=== PATIENT | female | born 1945 | race Caucasian/White ===

== ENCOUNTER 2020-04-01 14:37 | Inpatient (IN) ==
[2020-04-01] MEDS ORDERED: Albuterol HFA INHALER 8 gm MDI INH ONE (14:41)
[2020-04-01] MEDS ORDERED: fentaNYL 100 mcg/2 ml 50 MCG/ML VIAL IV SLOW PU ONE (15:55)
[2020-04-01] MEDS ORDERED: oxyCODONE SR 10 mg TAB PO ONE (15:59)
[2020-04-01 16:35] LABS: ABS Eosinophils 0.2 10^3/ul (0-0.6); ABS Lymphocytes 0.7 10^3/ul (1.0-4.8); ABS Monocytes 1.2 10^3/ul (0-0.8); ABS Neutrophils 10.1 10^3/ul (1.5-7.7); Eosinophil % 1.5 %; Hematocrit 42 % (35-47); Hemoglobin 13.8 g/dL (12.0-16.0); Mean Corpuscular HGB Conc 33 g/dL (31-36); Mean Corpuscular Hemoglobin 30 pg (27-31); Mean Corpuscular Volume 91 fL (80-97); Mean Platelet Volume 7.7 fL (7.4-10.4); Platelet Count 320 10^3/uL (150-450); Red Blood Count 4.67 10^6 /uL (3.70-4.87); Red Cell Distribution Width 14 % (10-15); White Blood Count 12.2 10^3/uL (3.5-10.8)
[2020-04-01 16:42] LABS: INR 0.97 (0.82-1.09)
[2020-04-01] MEDS ORDERED: methylPREDNISolone 125 mg 2 ML VIAL IV ONE (16:44)
[2020-04-01] MEDS ORDERED: Azithromycin 500 mg/250 ml NS 500 MG/250 ML BAG IVPB ONE (16:44)
[2020-04-01] MEDS ORDERED: cefTRIAXone 1 gm/50 mL NS BAG 1 GM/50 ML BAG IV ONE (16:44)
[2020-04-01 16:50] LABS: ALT 20 U/L (7-52); Albumin 3.9 g/dL (3.2-5.2); Albumin/Globulin Ratio 1.6 (1-3); Alkaline Phosphatase 57 U/L (34-104); Anion Gap 7 mmol/L (2-11); BUN/Creatinine Ratio 26.6 (8-20); Blood Urea Nitrogen 17 mg/dL (6-24); CO2 Carbon Dioxide 38 mmol/L (22-32); Calcium 9.1 mg/dL (8.6-10.3); Chloride 96 mmol/L (101-111); EGFR African American 109.2 (>60); EGFR Non-African American 90.2 (>60); Globulin 2.5 g/dL (2-4); Glucose 143 mg/dL (70-100); Sodium 141 mmol/L (135-145); Total Protein 6.4 g/dL (6.4-8.9)
[2020-04-01 16:52] LABS: Troponin I 0.01 ng/mL (<0.03)
[2020-04-01] MEDS ORDERED: Albuterol HFA INHALER 8 gm MDI INH PRN (17:13)
[2020-04-01 17:34] LABS: Potassium Redraw 3.8 mmol/L (3.5-5.0)
[2020-04-01 18:24] LABS: Urine Appearance Cloudy; Urine Bilirubin Negative (Negative); Urine Blood Negative (Negative); Urine Color Yellow; Urine Glucose Negative (Negative); Urine Ketones Trace (Negative); Urine Nitrite Positive (Negative); Urine Protein 1+(30 mg/dL) (Negative); Urine Specific Gravity 1.019 (1.010-1.030); Urine Urobilinogen Negative (Negative)
[2020-04-01 18:28] LABS: Urine Bacteria 2+ (Absent); Urine Red Blood Cell Trace(0-2/hpf) (Absent); Urine Squamous Epithelial Cell Present (Absent); Urine White Blood Cell Trace(0-5/hpf) (Absent)
[2020-04-01] MEDS ORDERED: Budesonide NEB 0.5 MG/2 ML NEB.SOLN INH ONE (19:00)
[2020-04-01] MEDS: Albuterol/Ipratropium NEB.SOL (2.5/0.5 MG) 3 ML NEB.SOLN INH PRN ×2 (19:24→23:44)
[2020-04-01] MEDS ORDERED: DOXYcycline IV 100 MG in NS 0.9% 250 ML IVPB ONE (21:00)
[2020-04-01] MEDS: oxyCODONE SR 10 mg TAB PO SCH (23:17)
[2020-04-01] MEDS: Heparin 5000 UNITS/ML 1 mL VIAL SUBCUT SCH (23:17)
[2020-04-02] MEDS: Heparin 5000 UNITS/ML 1 mL VIAL SUBCUT SCH (04:57)
[2020-04-02] MEDS: oxyCODONE SR 10 mg TAB PO SCH ×3 (05:41→23:26)
[2020-04-02] MEDS ORDERED: Budesonide NEB 0.5 MG/2 ML NEB.SOLN INH SCH (07:00)
[2020-04-02] MEDS: Albuterol/Ipratropium NEB.SOL (2.5/0.5 MG) 3 ML NEB.SOLN INH PRN ×3 (07:25→22:27)
[2020-04-02] MEDS: Budesonide NEB 0.5 MG/2 ML NEB.SOLN INH SCH ×2 (07:26→22:27)
[2020-04-02] MEDS ORDERED: Influenza VAC *QUAD* 2020-21* 0.5 ML SYRINGE IM ONE (09:00)
[2020-04-02] MEDS ORDERED: DOXYcycline 100 MG in NS 0.9% 250 ml 250 ML IVPB SCH ×2 (09:00→17:00)
[2020-04-02] MEDS ORDERED: DULoxetine DR 30 mg CAP PO SCH (09:00)
[2020-04-02] MEDS ORDERED: Potassium Chlor 20 meq TAB.ER PO SCH (09:00)
[2020-04-02] MEDS: DULoxetine DR 30 mg CAP PO SCH (10:32)
[2020-04-02] MEDS: Cholecalciferol (VIT D3) 1,000 unit TAB PO SCH (10:40)
[2020-04-02] MEDS: Polyethylene Glycol 3350 17 GM PACKET PO SCH (10:48)
[2020-04-02] MEDS ORDERED: Senna TAB 8.6 mg TAB PO PRN (11:01)
[2020-04-02] MEDS ORDERED: Magnesium Hydroxide LIQ 30 ML UDC PO PRN (11:01)
[2020-04-02] MEDS ORDERED: Polyethylene Glycol 3350 17 GM PACKET PO PRN (11:01)
[2020-04-02] MEDS: Ondansetron 4 mg VIAL 2 MG/ML 2 ml VIAL IV PRN ×2 (11:28→18:45)
[2020-04-02] MEDS: Potassium Chloride LIQUID 20 MEQ/15 ML LIQUID PO SCH (15:32)
[2020-04-02] MEDS ORDERED: cefTRIAXone 1 gm/50 mL NS BAG 1 GM/50 ML BAG IVPB SCH ×2 (17:00)
[2020-04-03] MEDS ORDERED: Famotidine IV 10 MG/ML 2 ml VIAL (20 mg) IV ONE (06:00)
[2020-04-03] MEDS ORDERED: Lactated Ringers 1000 ml BAG 1,000 ML IV SCH (06:00)
[2020-04-03] MEDS ORDERED: Buffered Lidocaine 1% SYRIN 1 ml INTRADERM ONE ×2 (06:00→09:14)
[2020-04-03] MEDS: oxyCODONE SR 10 mg TAB PO SCH ×3 (06:09→21:58)
[2020-04-03] MEDS: Cholecalciferol (VIT D3) 1,000 unit TAB PO SCH (08:20)
[2020-04-03] MEDS: Polyethylene Glycol 3350 17 GM PACKET PO SCH (08:21)
[2020-04-03] MEDS: Budesonide NEB 0.5 MG/2 ML NEB.SOLN INH SCH ×2 (09:04→20:30)
[2020-04-03] MEDS: Potassium Chloride LIQUID 20 MEQ/15 ML LIQUID PO SCH (09:10)
[2020-04-03] MEDS: DULoxetine DR 30 mg CAP PO SCH (09:10)
[2020-04-03] MEDS ORDERED: Lidocaine 1% w EPI 1:200,000 SDV 30 ML VIAL ONE (09:15)
[2020-04-03] MEDS ORDERED: ceFAZolin 2 GM PREMIX 2 GM/50 ML BAG ONE (09:27)
[2020-04-03 09:28] LABS: Hematocrit 32 % (35-47); Hemoglobin 10.6 g/dL (12.0-16.0); Mean Corpuscular HGB Conc 33 g/dL (31-36); Mean Corpuscular Hemoglobin 30 pg (27-31); Mean Corpuscular Volume 90 fL (80-97); Platelet Count 273 10^3/uL (150-450); Red Blood Count 3.55 10^6 /uL (3.70-4.87); Red Cell Distribution Width 14 % (10-15)
[2020-04-03] MEDS ORDERED: Lidocaine 2% PF 5 ML VIAL ONE (09:28)
[2020-04-03] MEDS ORDERED: Dexamethasone IV 4 MG/ML VIAL 1 ml VIAL ONE (09:28)
[2020-04-03] MEDS ORDERED: Ondansetron 4 mg VIAL 2 MG/ML 2 ml VIAL ONE (09:28)
[2020-04-03] MEDS ORDERED: Propofol 10 MG/ML 20 ML BTL ONE ×2 (09:28→12:09)
[2020-04-03] MEDS ORDERED: Midazolam 5 mg/5 ml VIAL 1 mg/ml 5 ml VIAL (5 mg) ONE (09:28)
[2020-04-03] MEDS ORDERED: Ketamine HCL 50 mg/ml 10 ml VIAL (500 MG) ONE (09:28)
[2020-04-03] MEDS ORDERED: fentaNYL 100 mcg/2 ml 50 MCG/ML VIAL ONE (09:28)
[2020-04-03 09:46] LABS: INR 1.08 (0.82-1.09)
[2020-04-03 09:53] LABS: Calcium 8.4 mg/dL (8.6-10.3); EGFR African American 145.1 (>60); Potassium 4.1 mmol/L (3.5-5.0)
[2020-04-03] MEDS ORDERED: Famotidine IV 10 MG/ML 2 ml VIAL (20 mg) ONE (09:54)
[2020-04-03] MEDS ORDERED: Bupivacaine 0.5% SDV PF 30ML VIAL ONE (10:08)
[2020-04-03] MEDS ORDERED: Phenylephrine 40 mcg/mL 10mL (400mcg) SYRINGE ONE (10:36)
[2020-04-03] MEDS ORDERED: Naloxone 0.4 mg VIAL 0.4 mg/ml 1 ml VIAL IV PRN (13:38)
[2020-04-03] MEDS ORDERED: Ondansetron 4 mg VIAL 2 MG/ML 2 ml VIAL IV PRN (13:38)
[2020-04-03] MEDS ORDERED: fentaNYL 100 mcg/2 ml 50 MCG/ML VIAL IV PRN (13:38)
[2020-04-03] MEDS: Albuterol/Ipratropium NEB.SOL (2.5/0.5 MG) 3 ML NEB.SOLN INH PRN (17:05)
[2020-04-03] MEDS: ceFAZolin 1 GM X 3 DOSES POST-OP Q8H (AddVan) IVPB SCH (18:31)
[2020-04-04] MEDS: ceFAZolin 1 GM X 3 DOSES POST-OP Q8H (AddVan) IVPB SCH ×2 (02:23→10:27)
[2020-04-04] MEDS: oxyCODONE SR 10 mg TAB PO SCH ×3 (06:28→22:04)
[2020-04-04 06:34] LABS: Hematocrit 28 % (35-47); Mean Corpuscular HGB Conc 33 g/dL (31-36); Mean Corpuscular Hemoglobin 29 pg (27-31); Mean Corpuscular Volume 89 fL (80-97); Mean Platelet Volume 7.6 fL (7.4-10.4); Platelet Count 248 10^3/uL (150-450); Red Blood Count 3.08 10^6 /uL (3.70-4.87); Red Cell Distribution Width 14 % (10-15); White Blood Count 17.8 10^3/uL (3.5-10.8)
[2020-04-04 07:01] LABS: BUN/Creatinine Ratio 44.1 (8-20); Calcium 8.4 mg/dL (8.6-10.3); EGFR African American 119.9 (>60); EGFR Non-African American 99.1 (>60); Potassium 4.4 mmol/L (3.5-5.0)
[2020-04-04] MEDS: Budesonide NEB 0.5 MG/2 ML NEB.SOLN INH SCH (07:35)
[2020-04-04] MEDS: Albuterol HFA INHALER 8 gm MDI INH PRN (08:22)
[2020-04-04] MEDS: Polyethylene Glycol 3350 17 GM PACKET PO SCH (10:35)
[2020-04-04] MEDS: Cholecalciferol (VIT D3) 1,000 unit TAB PO SCH (10:38)
[2020-04-04] MEDS: DULoxetine DR 30 mg CAP PO SCH (10:38)
[2020-04-04] MEDS: Potassium Chloride LIQUID 20 MEQ/15 ML LIQUID PO SCH (10:40)
[2020-04-04] MEDS: Enoxaparin 30 MG/0.3 ML SYR SUBCUT SCH ×2 (10:41→22:05)
[2020-04-04] MEDS ORDERED: cefTRIAXone 1 gm/50 mL NS BAG 1 GM/50 ML BAG IVPB SCH (17:00)
[2020-04-04] MEDS: Cefepime 1 GM in Dextrose 1 GM/50 ML BAG IV SCH (20:24)
[2020-04-04] MEDS: metroNIDAZOLE IV 500 MG/100ML 500 MG/100 ML BAG IVPB SCH (21:47)
[2020-04-04] MEDS: NS 0.9% 1000 ml BAG 1,000 ML IV SCH (23:29)
[2020-04-05] MEDS: Budesonide NEB 0.5 MG/2 ML NEB.SOLN INH SCH ×3 (00:02→20:25)
[2020-04-05] MEDS: metroNIDAZOLE IV 500 MG/100ML 500 MG/100 ML BAG IVPB SCH ×3 (04:20→20:18)
[2020-04-05 04:32] LABS: Hematocrit 24 % (35-47); Hemoglobin 7.6 g/dL (12.0-16.0); Mean Corpuscular HGB Conc 33 g/dL (31-36); Mean Corpuscular Hemoglobin 29 pg (27-31); Mean Corpuscular Volume 90 fL (80-97); Mean Platelet Volume 7.4 fL (7.4-10.4); Platelet Count 253 10^3/uL (150-450); Red Blood Count 2.61 10^6 /uL (3.70-4.87); Red Cell Distribution Width 14 % (10-15); White Blood Count 18.1 10^3/uL (3.5-10.8)
[2020-04-05 04:49] LABS: BUN/Creatinine Ratio 36.2 (8-20); Calcium 8.4 mg/dL (8.6-10.3); EGFR African American 61.7 (>60); Potassium 4.7 mmol/L (3.5-5.0)
[2020-04-05 06:59] LABS: ABS Basophils 0.1 10^3/ul (0-0.2); ABS Lymphocytes 0.8 10^3/ul (1.0-4.8); ABS Monocytes 2.6 10^3/ul (0-0.8); ABS Neutrophils 14.6 10^3/ul (1.5-7.7); Eosinophil % 0.1 %; Lymphocyte % 4.3 %; Platelet Morphology Large
[2020-04-05] MEDS ORDERED: Furosemide 40 mg/4 ml IV VIAL ONE (08:48)
[2020-04-05] MEDS: Cefepime 1 GM in Dextrose 1 GM/50 ML BAG IV SCH ×2 (08:56→20:18)
[2020-04-05] MEDS ORDERED: Bumetanide IV 0.25 MG/ML 4 ml VIAL (1 mg) IV SCH (09:00)
[2020-04-05] MEDS: Cholecalciferol (VIT D3) 1,000 unit TAB PO SCH (11:11)
[2020-04-05] MEDS: KCL 10 MEQ/50 ML IV SCH ×2 (11:17→20:18)
[2020-04-05] MEDS: Enoxaparin 30 MG/0.3 ML SYR SUBCUT SCH ×2 (11:19→20:16)
[2020-04-05] MEDS: Morphine 2 MG/ML SYRINGE IV PRN ×2 (16:53→20:58)
[2020-04-05] MEDS: NS 0.9% 1000 ml BAG 1,000 ML IV SCH (20:13)
[2020-04-05] MEDS: Albuterol/Ipratropium NEB.SOL (2.5/0.5 MG) 3 ML NEB.SOLN INH PRN (20:20)
[2020-04-06] MEDS ORDERED: Morphine 2 MG/ML SYRINGE IV PRN (00:09)
[2020-04-06] MEDS: Albuterol/Ipratropium NEB.SOL (2.5/0.5 MG) 3 ML NEB.SOLN INH PRN ×2 (03:02→07:36)
[2020-04-06] MEDS: metroNIDAZOLE IV 500 MG/100ML 500 MG/100 ML BAG IVPB SCH (03:40)
[2020-04-06] MEDS: Budesonide NEB 0.5 MG/2 ML NEB.SOLN INH SCH ×2 (07:36→19:06)
[2020-04-06 07:48] LABS: Hematocrit 22 % (35-47); Hemoglobin 7.3 g/dL (12.0-16.0); Mean Corpuscular HGB Conc 33 g/dL (31-36); Mean Corpuscular Hemoglobin 30 pg (27-31); Mean Corpuscular Volume 91 fL (80-97); Mean Platelet Volume 7.8 fL (7.4-10.4); Platelet Count 292 10^3/uL (150-450); Red Blood Count 2.46 10^6 /uL (3.70-4.87); Red Cell Distribution Width 14 % (10-15); White Blood Count 15.9 10^3/uL (3.5-10.8)
[2020-04-06 07:55] LABS: ABS Lymphocytes 0.9 10^3/ul (1.0-4.8); ABS Monocytes 1.9 10^3/ul (0-0.8); ABS Neutrophils 13.1 10^3/ul (1.5-7.7); Eosinophil % 0.2 %; Lymphocyte % 5.9 %
[2020-04-06] MEDS: Cholecalciferol (VIT D3) 1,000 unit TAB PO SCH (08:23)
[2020-04-06] MEDS: Enoxaparin 30 MG/0.3 ML SYR SUBCUT SCH ×2 (08:27→21:43)
[2020-04-06] MEDS: KCL 10 MEQ/50 ML IV SCH (08:28)
[2020-04-06] MEDS: Cefepime 1 GM in Dextrose 1 GM/50 ML BAG IV SCH ×2 (09:24→19:11)
[2020-04-06] MEDS: Albuterol/Ipratropium NEB.SOL (2.5/0.5 MG) 3 ML NEB.SOLN INH SCH ×4 (11:02→23:24)
[2020-04-06] MEDS ORDERED: LORazepam 2 mg VIAL 1 ml IV PUSH ONE (14:24)
[2020-04-06] MEDS ORDERED: Lorazepam PYXIS KEY PRN (14:24)
[2020-04-06] MEDS ORDERED: Haloperidol 5 mg/ml SDV IV/IM 5 MG/ML AMP ONE (16:08)
[2020-04-06] MEDS: NS 0.9% 1000 ml BAG 1,000 ML IV SCH (16:28)
[2020-04-06] MEDS: Haloperidol 5 mg/ml SDV IV/IM 5 MG/ML AMP IV SLOW PU PRN (22:13)
[2020-04-06] MEDS: Albuterol HFA INHALER 8 gm MDI INH PRN (23:18)
[2020-04-07] MEDS ORDERED: NS 0.9% 1000 ml BAG 1,000 ML IV SCH (00:49)
[2020-04-07] MEDS: Albuterol/Ipratropium NEB.SOL (2.5/0.5 MG) 3 ML NEB.SOLN INH SCH ×6 (01:23→22:51)
[2020-04-07] MEDS: Haloperidol 5 mg/ml SDV IV/IM 5 MG/ML AMP IV SLOW PU PRN (01:45)
[2020-04-07 04:39] LABS: BUN/Creatinine Ratio 58.8 (8-20); Calcium 7.9 mg/dL (8.6-10.3); EGFR African American 226.5 (>60); EGFR Non-African American 187.2 (>60); Magnesium 2.2 mg/dL (1.9-2.7); Phosphorus 1.4 mg/dL (2.5-5.0); Potassium 3.5 mmol/L (3.5-5.0)
[2020-04-07] MEDS: Budesonide NEB 0.5 MG/2 ML NEB.SOLN INH SCH ×2 (07:03→19:14)
[2020-04-07] MEDS: Cholecalciferol (VIT D3) 1,000 unit TAB PO SCH (07:19)
[2020-04-07 08:43] LABS: Hematocrit 22 % (35-47); Hemoglobin 7.2 g/dL (12.0-16.0); Mean Corpuscular HGB Conc 33 g/dL (31-36); Mean Corpuscular Hemoglobin 30 pg (27-31); Mean Corpuscular Volume 90 fL (80-97); Mean Platelet Volume 6.9 fL (7.4-10.4); Platelet Count 329 10^3/uL (150-450); Red Blood Count 2.41 10^6 /uL (3.70-4.87); Red Cell Distribution Width 14 % (10-15); White Blood Count 15.1 10^3/uL (3.5-10.8)
[2020-04-07 08:59] LABS: BUN/Creatinine Ratio 52.6 (8-20); Calcium 8.2 mg/dL (8.6-10.3); EGFR African American 199.2 (>60); EGFR Non-African American 164.7 (>60); Potassium 3.6 mmol/L (3.5-5.0)
[2020-04-07 09:36] LABS: ABS Lymphocytes 0.9 10^3/ul (1.0-4.8); ABS Monocytes 2.1 10^3/ul (0-0.8); ABS Neutrophils 12.1 10^3/ul (1.5-7.7); Eosinophil % 0.2 %; Lymphocyte % 5.9 %; Nucleated Red Blood Cells % 0.1
[2020-04-07] MEDS: Cefepime 1 GM in Dextrose 1 GM/50 ML BAG IV SCH ×2 (10:51→19:26)
[2020-04-07] MEDS: Enoxaparin 30 MG/0.3 ML SYR SUBCUT SCH ×2 (10:52→19:02)
[2020-04-07] MEDS ORDERED: Furosemide 40 mg/4 ml IV VIAL IV ONE (11:00)
[2020-04-07] MEDS ORDERED: Potassium Phosphate IV 15 MMOLE in NS 0.9% 250 ml 250 ML IVPB ONE (18:00)
[2020-04-08] MEDS: Morphine 2 MG/ML SYRINGE IV PRN ×5 (03:15→13:22)
[2020-04-08] MEDS: Albuterol/Ipratropium NEB.SOL (2.5/0.5 MG) 3 ML NEB.SOLN INH SCH ×6 (04:28→23:59)
[2020-04-08 05:18] LABS: Hematocrit 24 % (35-47); Hemoglobin 7.8 g/dL (12.0-16.0); Mean Corpuscular HGB Conc 32 g/dL (31-36); Mean Corpuscular Hemoglobin 30 pg (27-31); Mean Corpuscular Volume 92 fL (80-97); Mean Platelet Volume 6.8 fL (7.4-10.4); Platelet Count 383 10^3/uL (150-450); Red Blood Count 2.64 10^6 /uL (3.70-4.87); Red Cell Distribution Width 15 % (10-15); White Blood Count 15.8 10^3/uL (3.5-10.8)
[2020-04-08 05:35] LABS: BUN/Creatinine Ratio 52.9 (8-20); EGFR African American 226.5 (>60); EGFR Non-African American 187.2 (>60); Phosphorus 2.1 mg/dL (2.5-5.0); Potassium 3.3 mmol/L (3.5-5.0)
[2020-04-08] MEDS ORDERED: KCL 10 MEQ/50 ML IVPREMIX 10 MEQ/50 ML BAG IV ONE ×2 (07:30→17:05)
[2020-04-08] MEDS: Budesonide NEB 0.5 MG/2 ML NEB.SOLN INH SCH (07:37)
[2020-04-08] MEDS: Cefepime 1 GM in Dextrose 1 GM/50 ML BAG IV SCH (07:40)
[2020-04-08] MEDS: Cholecalciferol (VIT D3) 1,000 unit TAB PO SCH (07:47)
[2020-04-08] MEDS ORDERED: Albuterol/Ipratropium NEB.SOL (2.5/0.5 MG) 3 ML NEB.SOLN INH SCH (09:00)
[2020-04-08] MEDS ORDERED: Furosemide 40 mg/4 ml IV VIAL IV SLOW PU ONE (09:28)
[2020-04-08] MEDS: methylPREDNISolone SOD 40 mg/ml 1 ml VIAL IV SCH ×2 (09:38→17:27)
[2020-04-08] MEDS: Enoxaparin 30 MG/0.3 ML SYR SUBCUT SCH ×2 (09:38→22:09)
[2020-04-08] MEDS ORDERED: ceFAZolin 1 GM ADVAN 1 GM in NS 0.9% 50 ML 50 ML IVPB SCH (12:00)
[2020-04-08] MEDS ORDERED: Saline FLUSH-CENTRAL 10 ML SYRINGE CENT\\PICC SCH ×2 (13:00→18:00)
[2020-04-08 16:54] LABS: BUN/Creatinine Ratio 47.4 (8-20); Calcium 8.3 mg/dL (8.6-10.3); EGFR African American 199.2 (>60); EGFR Non-African American 164.7 (>60); Globulin 2.3 g/dL (2-4); Magnesium 2.1 mg/dL (1.9-2.7); Phosphorus 2.3 mg/dL (2.5-5.0); Potassium 3.3 mmol/L (3.5-5.0); Total Protein 5.3 g/dL (6.4-8.9)
[2020-04-08 16:55] LABS: Albumin/Globulin Ratio 1.3 (1-3); Total Bilirubin 1.5 mg/dL (0.2-1.0)
[2020-04-08] MEDS ORDERED: TPN Peripheral STANDARD BASE A IV SCH (17:00)
[2020-04-09] MEDS: Morphine 2 MG/ML SYRINGE IV PRN ×9 (00:29→23:01)
[2020-04-09] MEDS: methylPREDNISolone SOD 40 mg/ml 1 ml VIAL IV SCH ×3 (00:35→17:00)
[2020-04-09] MEDS: Albuterol/Ipratropium NEB.SOL (2.5/0.5 MG) 3 ML NEB.SOLN INH SCH ×6 (04:04→22:56)
[2020-04-09 04:21] LABS: Hematocrit 25 % (35-47); Hemoglobin 8.2 g/dL (12.0-16.0); Mean Corpuscular HGB Conc 33 g/dL (31-36); Mean Corpuscular Hemoglobin 30 pg (27-31); Mean Corpuscular Volume 91 fL (80-97); Mean Platelet Volume 7.1 fL (7.4-10.4); Platelet Count 437 10^3/uL (150-450); Red Blood Count 2.77 10^6 /uL (3.70-4.87); Red Cell Distribution Width 15 % (10-15); White Blood Count 17.6 10^3/uL (3.5-10.8)
[2020-04-09 05:19] LABS: Albumin 3.1 g/dL (3.2-5.2); Albumin/Globulin Ratio 1.2 (1-3); Calcium 8.6 mg/dL (8.6-10.3); EGFR African American 219.1 (>60); Globulin 2.5 g/dL (2-4); Magnesium 2.3 mg/dL (1.9-2.7); Phosphorus 1.9 mg/dL (2.5-5.0); Potassium 3.4 mmol/L (3.5-5.0); Total Bilirubin 1.5 mg/dL (0.2-1.0); Total Protein 5.6 g/dL (6.4-8.9)
[2020-04-09] MEDS ORDERED: KCL 20 MEQ/100 ML IVPREMIX 20 MEQ/100 ML BAG IV SCH (06:00)
[2020-04-09] MEDS: Cholecalciferol (VIT D3) 1,000 unit TAB PO SCH (08:29)
[2020-04-09] MEDS: Enoxaparin 30 MG/0.3 ML SYR SUBCUT SCH ×2 (08:49→21:24)
[2020-04-09] MEDS: cefTRIAXone 1 gm/50 mL NS BAG 1 GM/50 ML BAG IVPB SCH (08:55)
[2020-04-09] MEDS: KCL 10 MEQ/50 ML IVPREMIX 10 MEQ/50 ML BAG IV SCH (09:03)
[2020-04-09] MEDS: TPN 24 HR with Sodium Chloride CONC. 4 MEQ/ML 100 MEQ, Potassium Chloride TPN 50 MEQ, P... CENT\\PICC SCH (17:00)
[2020-04-10] MEDS: Morphine 2 MG/ML SYRINGE IV PRN ×6 (01:05→23:35)
[2020-04-10] MEDS: methylPREDNISolone SOD 40 mg/ml 1 ml VIAL IV SCH ×2 (01:05→09:43)
[2020-04-10] MEDS: Albuterol/Ipratropium NEB.SOL (2.5/0.5 MG) 3 ML NEB.SOLN INH SCH ×6 (04:01→22:49)
[2020-04-10 04:46] LABS: Hematocrit 24 % (35-47); Hemoglobin 7.8 g/dL (12.0-16.0); Mean Corpuscular HGB Conc 32 g/dL (31-36); Mean Corpuscular Hemoglobin 30 pg (27-31); Mean Corpuscular Volume 92 fL (80-97); Mean Platelet Volume 7.2 fL (7.4-10.4); Platelet Count 402 10^3/uL (150-450); Red Blood Count 2.65 10^6 /uL (3.70-4.87); Red Cell Distribution Width 15 % (10-15); White Blood Count 18.8 10^3/uL (3.5-10.8)
[2020-04-10 05:07] LABS: Albumin 2.9 g/dL (3.2-5.2); Albumin/Globulin Ratio 1.3 (1-3); BUN/Creatinine Ratio 55.9 (8-20); Calcium 8.2 mg/dL (8.6-10.3); EGFR African American 225.9 (>60); EGFR Non-African American 186.7 (>60); Globulin 2.2 g/dL (2-4); Magnesium 2.2 mg/dL (1.9-2.7); Phosphorus 2.1 mg/dL (2.5-5.0); Potassium 3.7 mmol/L (3.5-5.0); Total Protein 5.1 g/dL (6.4-8.9)
[2020-04-10] MEDS: cefTRIAXone 1 gm/50 mL NS BAG 1 GM/50 ML BAG IVPB SCH (07:36)
[2020-04-10] MEDS: Cholecalciferol (VIT D3) 1,000 unit TAB PO SCH (09:43)
[2020-04-10] MEDS: Enoxaparin 30 MG/0.3 ML SYR SUBCUT SCH ×2 (09:44→20:09)
[2020-04-10] MEDS ORDERED: Furosemide 20 mg/2 ml IV VIAL IV ONE (11:42)
[2020-04-10] MEDS ORDERED: Dextrose 50% Syringe 50 ml 25 GM/50 ML SYRINGE IV PUSH PRN (16:46)
[2020-04-10] MEDS: TPN 24 HR with Sodium Chloride CONC. 4 MEQ/ML 100 MEQ, Potassium Chloride TPN 50 MEQ, P... CENT\\PICC SCH (16:50)
[2020-04-10] MEDS: Famotidine IV 10 MG/ML 2 ml VIAL (20 mg) IV SLOW PU SCH (20:10)
[2020-04-11] MEDS: Albuterol/Ipratropium NEB.SOL (2.5/0.5 MG) 3 ML NEB.SOLN INH SCH ×6 (03:01→22:40)
[2020-04-11] MEDS: Morphine 2 MG/ML SYRINGE IV PRN ×5 (04:12→21:18)
[2020-04-11 04:56] LABS: Magnesium 2.8 mg/dL (1.9-2.7)
[2020-04-11 05:42] LABS: Hematocrit 29 % (35-47); Hemoglobin 8.4 g/dL (12.0-16.0); Mean Corpuscular HGB Conc 29 g/dL (31-36); Mean Corpuscular Hemoglobin 31 pg (27-31); Mean Corpuscular Volume 104 fL (80-97); Mean Platelet Volume 7.9 fL (7.4-10.4); Platelet Count 379 10^3/uL (150-450); Red Blood Count 2.74 10^6 /uL (3.70-4.87); Red Cell Distribution Width 18 % (10-15); White Blood Count 18.2 10^3/uL (3.5-10.8)
[2020-04-11 06:40] LABS: BUN/Creatinine Ratio 37.8 (8-20); Blood Urea Nitrogen 17 mg/dL (6-24); CO2 Carbon Dioxide 32 mmol/L (22-32); Calcium 8.7 mg/dL (8.6-10.3); Chloride 98 mmol/L (101-111); EGFR African American 163.5 (>60); EGFR Non-African American 135.1 (>60); Sodium 132 mmol/L (135-145)
[2020-04-11 06:44] LABS: Anion Gap 2 mmol/L (2-11)
[2020-04-11] MEDS: Enoxaparin 30 MG/0.3 ML SYR SUBCUT SCH ×2 (07:49→21:18)
[2020-04-11 07:50] LABS: Potassium Redraw 3.3 mmol/L (3.5-5.0)
[2020-04-11] MEDS: methylPREDNISolone SOD 40 mg/ml 1 ml VIAL IV SCH (07:50)
[2020-04-11] MEDS: Famotidine IV 10 MG/ML 2 ml VIAL (20 mg) IV SLOW PU SCH ×2 (07:50→21:18)
[2020-04-11 08:34] LABS: Polychromasia 1+
[2020-04-11 08:35] LABS: ABS Monocytes 2.4 10^3/ul (0-0.8); ABS Neutrophils 14.7 10^3/ul (1.5-7.7); ABS Nucleated RBC 0.1 10^3/ul; Eosinophil % 0.1 %; Lymphocyte % 5.5 %; Nucleated Red Blood Cells % 0.3
[2020-04-11] MEDS: KCL 20 MEQ/100 ML IVPREMIX 20 MEQ/100 ML BAG IV SCH ×2 (11:47→14:14)
[2020-04-11 12:51] LABS: Calcium 8.4 mg/dL (8.6-10.3); EGFR African American 218.5 (>60); EGFR Non-African American 180.6 (>60); Potassium 3.8 mmol/L (3.5-5.0)
[2020-04-11] MEDS ORDERED: Furosemide 20 mg/2 ml IV VIAL IV ONE (14:50)
[2020-04-11] MEDS ORDERED: Furosemide 20 mg/2 ml IV VIAL ONE (14:53)
[2020-04-11] MEDS: TPN CENTRAL STANDARD BASE A CENTR SCH (17:03)
[2020-04-11] MEDS: Insulin GLARGINE 100 un/ml 10 ml VIAL SUBCUT SCH (21:18)
[2020-04-12] MEDS: Morphine 2 MG/ML SYRINGE IV PRN ×4 (02:47→21:16)
[2020-04-12] MEDS: Albuterol/Ipratropium NEB.SOL (2.5/0.5 MG) 3 ML NEB.SOLN INH SCH ×6 (03:04→23:07)
[2020-04-12 05:26] LABS: Hematocrit 25 % (35-47); Hemoglobin 7.9 g/dL (12.0-16.0); Mean Corpuscular HGB Conc 32 g/dL (31-36); Mean Corpuscular Hemoglobin 30 pg (27-31); Mean Corpuscular Volume 93 fL (80-97); Mean Platelet Volume 7.2 fL (7.4-10.4); Platelet Count 343 10^3/uL (150-450); Red Blood Count 2.67 10^6 /uL (3.70-4.87); Red Cell Distribution Width 16 % (10-15); White Blood Count 16.2 10^3/uL (3.5-10.8)
[2020-04-12 05:42] LABS: ALT 12 U/L (7-52); AST 10 U/L (13-39); Albumin 2.7 g/dL (3.2-5.2); Albumin/Globulin Ratio 1.4 (1-3); Alkaline Phosphatase 46 U/L (34-104); BUN/Creatinine Ratio 58.8 (8-20); Blood Urea Nitrogen 20 mg/dL (6-24); CO2 Carbon Dioxide 38 mmol/L (22-32); Calcium 8.4 mg/dL (8.6-10.3); Chloride 104 mmol/L (101-111); Cholesterol 106 mg/dL; EGFR African American 225.9 (>60); EGFR Non-African American 186.7 (>60); Glucose 174 mg/dL (70-100); Magnesium 2.3 mg/dL (1.9-2.7); Phosphorus 2.9 mg/dL (2.5-5.0); Potassium 3.7 mmol/L (3.5-5.0); Sodium 142 mmol/L (135-145); Total Protein 4.7 g/dL (6.4-8.9); Triglycerides 120 mg/dL
[2020-04-12 05:43] LABS: Prealbumin 19 mg/dL (18-38)
[2020-04-12] MEDS: methylPREDNISolone SOD 40 mg/ml 1 ml VIAL IV SCH (08:56)
[2020-04-12] MEDS: Famotidine IV 10 MG/ML 2 ml VIAL (20 mg) IV SLOW PU SCH ×2 (09:04→21:16)
[2020-04-12] MEDS: Enoxaparin 30 MG/0.3 ML SYR SUBCUT SCH (09:04)
[2020-04-12 10:41] LABS: ABS Eosinophils 0.1 10^3/ul (0-0.6); ABS Lymphocytes 1.1 10^3/ul (1.0-4.8); ABS Monocytes 2.1 10^3/ul (0-0.8); ABS Neutrophils 12.9 10^3/ul (1.5-7.7); Eosinophil % 0.5 %; Lymphocyte % 7.1 %; Nucleated Red Blood Cells % 0.3
[2020-04-12 10:43] LABS: Polychromasia 1+
[2020-04-12] MEDS: TPN CENTRAL STANDARD BASE A CENTR SCH (17:15)
[2020-04-12] MEDS: Benzocaine/Menthol LOZ PO PRN (21:16)
[2020-04-12] MEDS: Enoxaparin 100 MG/ML SYR SUBCUT SCH (21:17)
[2020-04-12] MEDS: Insulin GLARGINE 100 un/ml 10 ml VIAL SUBCUT SCH (21:17)
[2020-04-13] MEDS: Morphine 2 MG/ML SYRINGE IV PRN ×4 (00:41→09:47)
[2020-04-13] MEDS: Albuterol/Ipratropium NEB.SOL (2.5/0.5 MG) 3 ML NEB.SOLN INH SCH ×6 (03:03→23:09)
[2020-04-13] MEDS: Benzocaine/Menthol LOZ PO PRN ×2 (04:31→09:46)
[2020-04-13 05:30] LABS: Hematocrit 25 % (35-47); Hemoglobin 8.1 g/dL (12.0-16.0); Mean Corpuscular HGB Conc 32 g/dL (31-36); Mean Corpuscular Hemoglobin 30 pg (27-31); Mean Corpuscular Volume 94 fL (80-97); Mean Platelet Volume 7.2 fL (7.4-10.4); Platelet Count 317 10^3/uL (150-450); Red Blood Count 2.65 10^6 /uL (3.70-4.87); Red Cell Distribution Width 18 % (10-15); White Blood Count 15.9 10^3/uL (3.5-10.8)
[2020-04-13 05:47] LABS: BUN/Creatinine Ratio 65.7 (8-20); Blood Urea Nitrogen 23 mg/dL (6-24); CO2 Carbon Dioxide 37 mmol/L (22-32); Calcium 8.3 mg/dL (8.6-10.3); Chloride 106 mmol/L (101-111); EGFR African American 218.5 (>60); EGFR Non-African American 180.6 (>60); Glucose 164 mg/dL (70-100); Magnesium 2.2 mg/dL (1.9-2.7); Phosphorus 3.7 mg/dL (2.5-5.0); Potassium 3.8 mmol/L (3.5-5.0); Sodium 143 mmol/L (135-145)
[2020-04-13 08:43] LABS: ABS Eosinophils 0.1 10^3/ul (0-0.6); ABS Monocytes 1.9 10^3/ul (0-0.8); ABS Neutrophils 12.8 10^3/ul (1.5-7.7); Eosinophil % 0.5 %; Lymphocyte % 6.5 %; Nucleated Red Blood Cells % 0.1
[2020-04-13 08:45] LABS: Polychromasia 1+
[2020-04-13] MEDS: Enoxaparin 100 MG/ML SYR SUBCUT SCH ×2 (09:44→22:33)
[2020-04-13] MEDS: Famotidine IV 10 MG/ML 2 ml VIAL (20 mg) IV SLOW PU SCH ×2 (09:45→22:33)
[2020-04-13] MEDS: methylPREDNISolone SOD 40 mg/ml 1 ml VIAL IV SCH (09:45)
[2020-04-13] MEDS: Insulin GLARGINE 100 un/ml 10 ml VIAL SUBCUT SCH (22:53)
[2020-04-14] MEDS: Albuterol/Ipratropium NEB.SOL (2.5/0.5 MG) 3 ML NEB.SOLN INH SCH ×4 (03:16→15:39)
[2020-04-14 05:45] LABS: Hematocrit 26 % (35-47); Mean Corpuscular HGB Conc 31 g/dL (31-36); Mean Corpuscular Hemoglobin 30 pg (27-31); Mean Corpuscular Volume 95 fL (80-97); Mean Platelet Volume 7.2 fL (7.4-10.4); Platelet Count 288 10^3/uL (150-450); Red Blood Count 2.71 10^6 /uL (3.70-4.87); Red Cell Distribution Width 18 % (10-15); White Blood Count 13.8 10^3/uL (3.5-10.8)
[2020-04-14 06:02] LABS: BUN/Creatinine Ratio 66.7 (8-20); Blood Urea Nitrogen 24 mg/dL (6-24); CO2 Carbon Dioxide 38 mmol/L (22-32); Calcium 8.3 mg/dL (8.6-10.3); Chloride 104 mmol/L (101-111); EGFR African American 211.5 (>60); EGFR Non-African American 174.8 (>60); Glucose 92 mg/dL (70-100); Magnesium 2.2 mg/dL (1.9-2.7); Potassium 3.9 mmol/L (3.5-5.0); Sodium 142 mmol/L (135-145)
[2020-04-14 06:08] LABS: ABS Eosinophils 0.1 10^3/ul (0-0.6); ABS Lymphocytes 0.9 10^3/ul (1.0-4.8); ABS Monocytes 1.8 10^3/ul (0-0.8); ABS Neutrophils 11.1 10^3/ul (1.5-7.7); Eosinophil % 0.5 %; Lymphocyte % 6.7 %; Nucleated Red Blood Cells % 0.1
[2020-04-14 06:15] LABS: Polychromasia 1+
[2020-04-14] MEDS ORDERED: cefTRIAXone 2 GM ADDV.VIAL 2 GM in NS 0.9% 100 ml BAG 100 ML IVPB SCH (09:00)
[2020-04-14] MEDS ORDERED: Vancomycin per Pharmacy 1 EA NOTE FOLLOW UP SCH (09:00)
[2020-04-14] MEDS ORDERED: Vancomycin 1,500 MG in NS 0.9% 250 ml 250 ML IVPB ONE (09:00)
[2020-04-14] MEDS: Famotidine IV 10 MG/ML 2 ml VIAL (20 mg) IV SLOW PU SCH (09:04)
[2020-04-14] MEDS: Enoxaparin 100 MG/ML SYR SUBCUT SCH ×2 (09:05→21:34)
[2020-04-14] MEDS: Benzocaine/Menthol LOZ PO PRN ×2 (09:06→21:32)
[2020-04-14] MEDS ORDERED: Budesonide NEB 0.5 MG/2 ML NEB.SOLN INH SCH (10:00)
[2020-04-14] MEDS ORDERED: Remdesivir 5 MG/ML LIQ IV Vial 200 MG in NS 0.9% 250 ml 210 ML IV ONE (10:30)
[2020-04-14] MEDS: Tiotropium Brom/Olodaterol MDI INH SCH (11:26)
[2020-04-14] MEDS: Vancomycin 1,250 MG in NS 0.9% 250 ml 250 ML IVPB SCH (17:32)
[2020-04-14] MEDS: Albuterol HFA INHALER 8 gm MDI INH PRN (20:10)
[2020-04-14] MEDS: Mometasone 220 MCG MDI INH SCH (20:11)
[2020-04-14] MEDS ORDERED: Sulfamethox/Trimethoprim DS TAB 800/160 mg PO SCH ×2 (21:00)
[2020-04-14] MEDS: methylPREDNISolone SOD 40 mg/ml 1 ml VIAL IV SCH (21:35)
[2020-04-15] MEDS: Insulin GLARGINE 100 un/ml 10 ml VIAL SUBCUT SCH ×3 (01:44→21:36)
[2020-04-15] MEDS: Famotidine IV 10 MG/ML 2 ml VIAL (20 mg) IV SLOW PU SCH ×4 (01:45→21:24)
[2020-04-15] MEDS: Vancomycin 1,250 MG in NS 0.9% 250 ml 250 ML IVPB SCH ×2 (01:45→09:30)
[2020-04-15] MEDS: Sulfamethox/Trimethoprim DS TAB 800/160 mg PO SCH ×3 (01:45→21:39)
[2020-04-15 07:12] LABS: BUN/Creatinine Ratio 58.3 (8-20); Calcium 8.1 mg/dL (8.6-10.3); EGFR African American 211.5 (>60); EGFR Non-African American 174.8 (>60); Magnesium 2.2 mg/dL (1.9-2.7); Potassium 4.2 mmol/L (3.5-5.0)
[2020-04-15 07:49] LABS: Hematocrit 26 % (35-47); Mean Corpuscular HGB Conc 31 g/dL (31-36); Mean Corpuscular Hemoglobin 30 pg (27-31); Mean Corpuscular Volume 95 fL (80-97); Mean Platelet Volume 7.3 fL (7.4-10.4); Platelet Count 270 10^3/uL (150-450); Red Cell Distribution Width 18 % (10-15); White Blood Count 13.5 10^3/uL (3.5-10.8)
[2020-04-15] MEDS: Albuterol HFA INHALER 8 gm MDI INH PRN ×4 (08:28→19:40)
[2020-04-15] MEDS ORDERED: Vancomycin Trough Check NOTE FOLLOW UP ONE (08:30)
[2020-04-15] MEDS: Enoxaparin 100 MG/ML SYR SUBCUT SCH (08:34)
[2020-04-15] MEDS: methylPREDNISolone SOD 40 mg/ml 1 ml VIAL IV SCH ×2 (08:35→21:31)
[2020-04-15 08:52] LABS: ABS Lymphocytes 0.4 10^3/ul (1.0-4.8); ABS Monocytes 0.8 10^3/ul (0-0.8); ABS Neutrophils 12.3 10^3/ul (1.5-7.7); Lymphocyte % 2.9 %; Nucleated Red Blood Cells % 0.1
[2020-04-15] MEDS: Mometasone 220 MCG MDI INH SCH ×2 (09:22→19:41)
[2020-04-15] MEDS: Tiotropium Brom/Olodaterol MDI INH SCH (09:22)
[2020-04-15] MEDS: Vancomycin 1000 MG in NS 0.9% 250 ML IVPB SCH ×2 (12:38→21:28)
[2020-04-15] MEDS: Remdesivir 5 MG/ML LIQ IV Vial 100 MG in NS 0.9% 250 ml 230 ML IV SCH (15:09)
[2020-04-15] MEDS: Benzocaine/Menthol LOZ PO PRN (21:39)
[2020-04-16] MEDS: Vancomycin 1000 MG in NS 0.9% 250 ML IVPB SCH (04:26)
[2020-04-16] MEDS: Albuterol HFA INHALER 8 gm MDI INH PRN ×3 (06:41→17:44)
[2020-04-16] MEDS: Tiotropium Brom/Olodaterol MDI INH SCH ×2 (06:43→07:56)
[2020-04-16] MEDS: Mometasone 220 MCG MDI INH SCH ×3 (06:43→20:32)
[2020-04-16 08:09] LABS: Albumin/Globulin Ratio 1.5 (1-3); BUN/Creatinine Ratio 51.3 (8-20); EGFR African American 192.8 (>60); EGFR Non-African American 159.4 (>60); Total Bilirubin 0.9 mg/dL (0.2-1.0)
[2020-04-16] MEDS: Enoxaparin 40 MG/0.4 ML SYR SUBCUT SCH (08:58)
[2020-04-16] MEDS: methylPREDNISolone SOD 40 mg/ml 1 ml VIAL IV SCH ×2 (08:59→21:18)
[2020-04-16] MEDS: Famotidine IV 10 MG/ML 2 ml VIAL (20 mg) IV SLOW PU SCH ×2 (08:59→21:14)
[2020-04-16] MEDS: Sulfamethox/Trimethoprim DS TAB 800/160 mg PO SCH ×2 (08:59→21:21)
[2020-04-16] MEDS ORDERED: Vancomycin Trough Check NOTE FOLLOW UP ONE (11:30)
[2020-04-16 11:54] LABS: Magnesium 2.2 mg/dL (1.9-2.7)
[2020-04-16] MEDS: Remdesivir 5 MG/ML LIQ IV Vial 100 MG in NS 0.9% 250 ml 230 ML IV SCH (16:14)
[2020-04-16 16:24] LABS: Hematocrit 27 % (35-47); Hemoglobin 8.7 g/dL (12.0-16.0); Mean Corpuscular HGB Conc 32 g/dL (31-36); Mean Corpuscular Hemoglobin 30 pg (27-31); Mean Corpuscular Volume 95 fL (80-97); Mean Platelet Volume 8.5 fL (7.4-10.4); Platelet Count 283 10^3/uL (150-450); Red Blood Count 2.87 10^6 /uL (3.70-4.87); Red Cell Distribution Width 18 % (10-15); White Blood Count 10.5 10^3/uL (3.5-10.8)
[2020-04-16 18:21] LABS: ABS Lymphocytes 0.2 10^3/ul (1.0-4.8); ABS Monocytes 0.9 10^3/ul (0-0.8); ABS Neutrophils 9.4 10^3/ul (1.5-7.7); Lymphocyte % 1.8 %; Nucleated Red Blood Cells % 0.1
[2020-04-16] MEDS: Benzocaine/Menthol LOZ PO PRN (21:22)
[2020-04-16] MEDS: Insulin GLARGINE 100 un/ml 10 ml VIAL SUBCUT SCH (21:47)
[2020-04-17 07:57] LABS: Albumin/Globulin Ratio 1.6 (1-3); BUN/Creatinine Ratio 47.7 (8-20); EGFR African American 167.8 (>60); EGFR Non-African American 138.7 (>60); Globulin 1.9 g/dL (2-4); Potassium 4.4 mmol/L (3.5-5.0); Total Bilirubin 0.8 mg/dL (0.2-1.0); Total Protein 4.9 g/dL (6.4-8.9)
[2020-04-17] MEDS: Tiotropium Brom/Olodaterol MDI INH SCH (08:23)
[2020-04-17] MEDS: Albuterol HFA INHALER 8 gm MDI INH PRN (08:23)
[2020-04-17] MEDS: Mometasone 220 MCG MDI INH SCH ×2 (08:24→19:57)
[2020-04-17] MEDS: methylPREDNISolone SOD 40 mg/ml 1 ml VIAL IV SCH ×2 (09:41→21:17)
[2020-04-17] MEDS: Sulfamethox/Trimethoprim DS TAB 800/160 mg PO SCH (09:48)
[2020-04-17] MEDS: Famotidine IV 10 MG/ML 2 ml VIAL (20 mg) IV SLOW PU SCH ×2 (09:50→21:17)
[2020-04-17] MEDS: Enoxaparin 40 MG/0.4 ML SYR SUBCUT SCH (09:50)
[2020-04-17] MEDS: Polyethylene Glycol 3350 17 GM PACKET PO SCH (16:32)
[2020-04-17] MEDS: Remdesivir 5 MG/ML LIQ IV Vial 100 MG in NS 0.9% 250 ml 230 ML IV SCH (21:19)
[2020-04-17] MEDS: Insulin GLARGINE 100 un/ml 10 ml VIAL SUBCUT SCH (21:51)
[2020-04-17] MEDS: Benzocaine/Menthol LOZ PO PRN (21:52)
[2020-04-18 05:17] LABS: ALT 50 U/L (7-52); AST 19 U/L (13-39); Albumin/Globulin Ratio 1.7 (1-3); Alkaline Phosphatase 73 U/L (34-104); BUN/Creatinine Ratio 51.4 (8-20); Blood Urea Nitrogen 18 mg/dL (6-24); CO2 Carbon Dioxide 39 mmol/L (22-32); Calcium 7.9 mg/dL (8.6-10.3); Chloride 102 mmol/L (101-111); EGFR African American 218.5 (>60); EGFR Non-African American 180.6 (>60); Globulin 1.8 g/dL (2-4); Glucose 130 mg/dL (70-100); Potassium 4.4 mmol/L (3.5-5.0); Sodium 141 mmol/L (135-145); Total Protein 4.8 g/dL (6.4-8.9)
[2020-04-18] MEDS: Albuterol HFA INHALER 8 gm MDI INH PRN ×3 (07:36→19:14)
[2020-04-18] MEDS: Tiotropium Brom/Olodaterol MDI INH SCH (07:36)
[2020-04-18] MEDS: Mometasone 220 MCG MDI INH SCH ×2 (07:36→19:14)
[2020-04-18] MEDS: Famotidine IV 10 MG/ML 2 ml VIAL (20 mg) IV SLOW PU SCH ×2 (08:14→21:20)
[2020-04-18] MEDS: methylPREDNISolone SOD 40 mg/ml 1 ml VIAL IV SCH ×2 (08:14→21:20)
[2020-04-18] MEDS: Enoxaparin 40 MG/0.4 ML SYR SUBCUT SCH (08:15)
[2020-04-18] MEDS: Polyethylene Glycol 3350 17 GM PACKET PO SCH (11:22)
[2020-04-18] MEDS: Benzocaine/Menthol LOZ PO PRN (21:24)
[2020-04-18] MEDS: Remdesivir 5 MG/ML LIQ IV Vial 100 MG in NS 0.9% 250 ml 230 ML IV SCH (21:24)
[2020-04-18] MEDS: Insulin GLARGINE 100 un/ml 10 ml VIAL SUBCUT SCH (21:32)
[2020-04-18 22:16] LABS: BUN/Creatinine Ratio 44.2 (8-20); Blood Urea Nitrogen 19 mg/dL (6-24); Chloride 100 mmol/L (101-111); EGFR African American 172.3 (>60); EGFR Non-African American 142.4 (>60); Glucose 135 mg/dL (70-100); Magnesium 2.3 mg/dL (1.9-2.7); Potassium 3.9 mmol/L (3.5-5.0); Sodium 140 mmol/L (135-145)
[2020-04-18 22:24] LABS: CO2 Carbon Dioxide 41 mmol/L (22-32)
[2020-04-19] MEDS: Mometasone 220 MCG MDI INH SCH ×2 (07:18→19:37)
[2020-04-19] MEDS: Tiotropium Brom/Olodaterol MDI INH SCH (07:19)
[2020-04-19] MEDS: Albuterol HFA INHALER 8 gm MDI INH PRN ×3 (07:19→19:36)
[2020-04-19] MEDS: Famotidine IV 10 MG/ML 2 ml VIAL (20 mg) IV SLOW PU SCH ×2 (08:09→21:58)
[2020-04-19] MEDS: methylPREDNISolone SOD 40 mg/ml 1 ml VIAL IV SCH ×2 (08:09→21:58)
[2020-04-19] MEDS: Enoxaparin 40 MG/0.4 ML SYR SUBCUT SCH (08:09)
[2020-04-19] MEDS: Polyethylene Glycol 3350 17 GM PACKET PO SCH (08:10)
[2020-04-19 09:54] LABS: BUN/Creatinine Ratio 47.2 (8-20); Calcium 7.9 mg/dL (8.6-10.3); EGFR African American 211.5 (>60); EGFR Non-African American 174.8 (>60); Potassium 4.2 mmol/L (3.5-5.0)
[2020-04-19] MEDS: Sodium Phosphate ADULT ENEMA 133 ML BTL PR ONE ×2 (16:46→17:36)
[2020-04-19] MEDS: Insulin GLARGINE 100 un/ml 10 ml VIAL SUBCUT SCH (20:15)
[2020-04-20] MEDS: Benzocaine/Menthol LOZ PO PRN ×2 (00:41→22:20)
[2020-04-20] MEDS: Tiotropium Brom/Olodaterol MDI INH SCH (07:45)
[2020-04-20] MEDS: Mometasone 220 MCG MDI INH SCH ×2 (07:45→21:04)
[2020-04-20] MEDS: Famotidine IV 10 MG/ML 2 ml VIAL (20 mg) IV SLOW PU SCH ×2 (08:10→22:10)
[2020-04-20] MEDS: methylPREDNISolone SOD 40 mg/ml 1 ml VIAL IV SCH ×2 (08:10→22:09)
[2020-04-20] MEDS: Enoxaparin 40 MG/0.4 ML SYR SUBCUT SCH (08:11)
[2020-04-20] MEDS: Polyethylene Glycol 3350 17 GM PACKET PO SCH (08:12)
[2020-04-20] MEDS: Insulin GLARGINE 100 un/ml 10 ml VIAL SUBCUT SCH (22:25)
[2020-04-21] MEDS: Tiotropium Brom/Olodaterol MDI INH SCH (07:41)
[2020-04-21] MEDS: Mometasone 220 MCG MDI INH SCH ×2 (07:41→19:22)
[2020-04-21] MEDS: Albuterol HFA INHALER 8 gm MDI INH PRN (07:43)
[2020-04-21] MEDS: Famotidine IV 10 MG/ML 2 ml VIAL (20 mg) IV SLOW PU SCH ×2 (11:38→22:02)
[2020-04-21] MEDS: methylPREDNISolone SOD 40 mg/ml 1 ml VIAL IV SCH (11:38)
[2020-04-21] MEDS: Enoxaparin 40 MG/0.4 ML SYR SUBCUT SCH (11:38)
[2020-04-21] MEDS: Polyethylene Glycol 3350 17 GM PACKET PO SCH (11:39)
[2020-04-21] MEDS: Insulin GLARGINE 100 un/ml 10 ml VIAL SUBCUT SCH (22:03)
[2020-04-21] MEDS: Benzocaine/Menthol LOZ PO PRN (22:31)
[2020-04-22] MEDS: Mometasone 220 MCG MDI INH SCH ×2 (07:18→19:54)
[2020-04-22] MEDS: Tiotropium Brom/Olodaterol MDI INH SCH (07:19)
[2020-04-22] MEDS: Polyethylene Glycol 3350 17 GM PACKET PO SCH (09:06)
[2020-04-22] MEDS: Famotidine IV 10 MG/ML 2 ml VIAL (20 mg) IV SLOW PU SCH ×2 (09:22→19:53)
[2020-04-22] MEDS: Enoxaparin 40 MG/0.4 ML SYR SUBCUT SCH (09:22)
[2020-04-22] MEDS: Insulin GLARGINE 100 un/ml 10 ml VIAL SUBCUT SCH (19:53)
[2020-04-22] MEDS: Benzocaine/Menthol LOZ PO PRN (19:53)
[2020-04-23] MEDS: Tiotropium Brom/Olodaterol MDI INH SCH (07:58)
[2020-04-23] MEDS: Mometasone 220 MCG MDI INH SCH ×2 (07:59→20:01)
[2020-04-23] MEDS: Polyethylene Glycol 3350 17 GM PACKET PO SCH (09:14)
[2020-04-23] MEDS: Famotidine IV 10 MG/ML 2 ml VIAL (20 mg) IV SLOW PU SCH ×2 (09:17→21:50)
[2020-04-23] MEDS: Enoxaparin 40 MG/0.4 ML SYR SUBCUT SCH (09:17)
[2020-04-23] MEDS: Albuterol HFA INHALER 8 gm MDI INH PRN (20:01)
[2020-04-23] MEDS: Insulin GLARGINE 100 un/ml 10 ml VIAL SUBCUT SCH (21:51)
[2020-04-23] MEDS: Benzocaine/Menthol LOZ PO PRN (21:55)
[2020-04-24 05:50] LABS: ABS Lymphocytes 0.7 10^3/ul (1.0-4.8); ABS Monocytes 0.8 10^3/ul (0-0.8); ABS Neutrophils 5.4 10^3/ul (1.5-7.7); Eosinophil % 0.5 %; Hematocrit 30 % (35-47); Hemoglobin 9.5 g/dL (12.0-16.0); Lymphocyte % 10.4 %; Mean Corpuscular HGB Conc 32 g/dL (31-36); Mean Corpuscular Hemoglobin 30 pg (27-31); Mean Corpuscular Volume 96 fL (80-97); Mean Platelet Volume 7.4 fL (7.4-10.4); Platelet Count 224 10^3/uL (150-450); Red Blood Count 3.13 10^6 /uL (3.70-4.87); Red Cell Distribution Width 17 % (10-15); White Blood Count 6.9 10^3/uL (3.5-10.8)
[2020-04-24 06:06] LABS: BUN/Creatinine Ratio 38.5 (8-20); Calcium 7.8 mg/dL (8.6-10.3); EGFR African American 192.8 (>60); EGFR Non-African American 159.4 (>60); Potassium 3.8 mmol/L (3.5-5.0)
[2020-04-24] MEDS: Mometasone 220 MCG MDI INH SCH ×2 (07:14→21:38)
[2020-04-24] MEDS: Tiotropium Brom/Olodaterol MDI INH SCH (07:18)
[2020-04-24] MEDS: Enoxaparin 40 MG/0.4 ML SYR SUBCUT SCH (09:54)
[2020-04-24] MEDS: Polyethylene Glycol 3350 17 GM PACKET PO SCH (09:54)
[2020-04-24] MEDS: Famotidine IV 10 MG/ML 2 ml VIAL (20 mg) IV SLOW PU SCH ×2 (09:55→19:41)
[2020-04-24] MEDS: Albuterol HFA INHALER 8 gm MDI INH PRN ×2 (16:19→21:39)
[2020-04-24] MEDS: Benzocaine/Menthol LOZ PO PRN (19:41)
[2020-04-24] MEDS: Insulin GLARGINE 100 un/ml 10 ml VIAL SUBCUT SCH (20:09)
[2020-04-25] MEDS: Mometasone 220 MCG MDI INH SCH ×2 (07:35→19:46)
[2020-04-25] MEDS: Tiotropium Brom/Olodaterol MDI INH SCH (07:36)
[2020-04-25] MEDS: Albuterol HFA INHALER 8 gm MDI INH PRN ×3 (07:36→19:46)
[2020-04-25 11:57] LABS: ABS Lymphocytes 0.5 10^3/ul (1.0-4.8); ABS Monocytes 0.9 10^3/ul (0-0.8); ABS Neutrophils 6.3 10^3/ul (1.5-7.7); Eosinophil % 0.4 %; Hematocrit 39 % (35-47); Hemoglobin 11.4 g/dL (12.0-16.0); Lymphocyte % 6.9 %; Mean Corpuscular HGB Conc 29 g/dL (31-36); Mean Corpuscular Hemoglobin 31 pg (27-31); Mean Corpuscular Volume 104 fL (80-97); Mean Platelet Volume 7.5 fL (7.4-10.4); Platelet Count 204 10^3/uL (150-450); Red Blood Count 3.76 10^6 /uL (3.70-4.87); Red Cell Distribution Width 18 % (10-15); White Blood Count 7.8 10^3/uL (3.5-10.8)
[2020-04-25 12:10] LABS: Potassium 3.8 mmol/L (3.5-5.0)
[2020-04-25 12:16] LABS: BUN/Creatinine Ratio 38.5 (8-20); EGFR African American 192.8 (>60); EGFR Non-African American 159.4 (>60)
[2020-04-25] MEDS: Polyethylene Glycol 3350 17 GM PACKET PO SCH (12:30)
[2020-04-25] MEDS: Enoxaparin 40 MG/0.4 ML SYR SUBCUT SCH (12:31)
[2020-04-25] MEDS: Famotidine IV 10 MG/ML 2 ml VIAL (20 mg) IV SLOW PU SCH ×2 (12:31→20:53)
[2020-04-25] MEDS: DULoxetine DR 30 mg CAP PO SCH (12:33)
[2020-04-25] MEDS: Insulin GLARGINE 100 un/ml 10 ml VIAL SUBCUT SCH (21:11)
[2020-04-25] MEDS: Benzocaine/Menthol LOZ PO PRN (21:12)
[2020-04-26 08:32] LABS: BUN/Creatinine Ratio 35.9 (8-20); Blood Urea Nitrogen 14 mg/dL (6-24); Chloride 96 mmol/L (101-111); EGFR African American 192.8 (>60); EGFR Non-African American 159.4 (>60); Glucose 92 mg/dL (70-100); Sodium 144 mmol/L (135-145)
[2020-04-26 08:54] LABS: CO2 Carbon Dioxide 46 mmol/L (22-32)
[2020-04-26] MEDS: Tiotropium Brom/Olodaterol MDI INH SCH (09:03)
[2020-04-26] MEDS: Albuterol HFA INHALER 8 gm MDI INH PRN (09:03)
[2020-04-26] MEDS: Mometasone 220 MCG MDI INH SCH (09:03)
[2020-04-26] MEDS: DULoxetine DR 30 mg CAP PO SCH (09:27)
[2020-04-26] MEDS: Enoxaparin 40 MG/0.4 ML SYR SUBCUT SCH (09:28)
[2020-04-26] MEDS: Famotidine IV 10 MG/ML 2 ml VIAL (20 mg) IV SLOW PU SCH ×2 (09:28→19:37)
[2020-04-26] MEDS: Polyethylene Glycol 3350 17 GM PACKET PO SCH (09:28)
[2020-04-26] MEDS: Insulin GLARGINE 100 un/ml 10 ml VIAL SUBCUT SCH (20:19)
[2020-04-27] MEDS: Mometasone 220 MCG MDI INH SCH ×3 (00:04→19:46)
[2020-04-27 03:39] LABS: ABS Lymphocytes 0.6 10^3/ul (1.0-4.8); ABS Monocytes 0.7 10^3/ul (0-0.8); ABS Neutrophils 4.2 10^3/ul (1.5-7.7); Eosinophil % 0.4 %; Hematocrit 29 % (35-47); Hemoglobin 9.1 g/dL (12.0-16.0); Lymphocyte % 10.9 %; Mean Corpuscular HGB Conc 31 g/dL (31-36); Mean Corpuscular Hemoglobin 30 pg (27-31); Mean Corpuscular Volume 96 fL (80-97); Mean Platelet Volume 7.1 fL (7.4-10.4); Platelet Count 161 10^3/uL (150-450); Red Blood Count 3.01 10^6 /uL (3.70-4.87); Red Cell Distribution Width 16 % (10-15); White Blood Count 5.6 10^3/uL (3.5-10.8)
[2020-04-27] MEDS: Polyethylene Glycol 3350 17 GM PACKET PO SCH (09:12)
[2020-04-27] MEDS: DULoxetine DR 30 mg CAP PO SCH (09:14)
[2020-04-27] MEDS: Famotidine IV 10 MG/ML 2 ml VIAL (20 mg) IV SLOW PU SCH (09:15)
[2020-04-27] MEDS: Enoxaparin 40 MG/0.4 ML SYR SUBCUT SCH (09:15)
[2020-04-27 11:38] LABS: BUN/Creatinine Ratio 47.1 (8-20); Calcium 7.8 mg/dL (8.6-10.3); EGFR African American 225.9 (>60); EGFR Non-African American 186.7 (>60); Potassium 3.9 mmol/L (3.5-5.0)
[2020-04-27] MEDS: Saline FLUSH-CENTRAL 10 ML SYRINGE CENT\\PICC SCH ×2 (12:34→22:20)
[2020-04-27] MEDS ORDERED: Potassium Chlor 20 meq TAB.ER PO ONE (14:27)
[2020-04-27] MEDS: Tiotropium Brom/Olodaterol MDI INH SCH (18:40)
[2020-04-27] MEDS: Insulin GLARGINE 100 un/ml 10 ml VIAL SUBCUT SCH (22:18)
[2020-04-27] MEDS: Benzocaine/Menthol LOZ PO PRN (22:45)
[2020-04-28 04:48] LABS: ABS Eosinophils 0.1 10^3/ul (0-0.6); ABS Lymphocytes 0.5 10^3/ul (1.0-4.8); ABS Monocytes 0.8 10^3/ul (0-0.8); ABS Neutrophils 4.1 10^3/ul (1.5-7.7); Eosinophil % 1.1 %; Hematocrit 30 % (35-47); Hemoglobin 9.7 g/dL (12.0-16.0); Lymphocyte % 9.7 %; Mean Corpuscular HGB Conc 32 g/dL (31-36); Mean Corpuscular Hemoglobin 30 pg (27-31); Mean Corpuscular Volume 95 fL (80-97); Mean Platelet Volume 6.8 fL (7.4-10.4); Platelet Count 140 10^3/uL (150-450); Red Blood Count 3.18 10^6 /uL (3.70-4.87); Red Cell Distribution Width 16 % (10-15); White Blood Count 5.5 10^3/uL (3.5-10.8)
[2020-04-28 05:04] LABS: BUN/Creatinine Ratio 34.4 (8-20); Blood Urea Nitrogen 11 mg/dL (6-24); Calcium 7.9 mg/dL (8.6-10.3); Chloride 97 mmol/L (101-111); EGFR African American 242.3 (>60); EGFR Non-African American 200.2 (>60); Glucose 91 mg/dL (70-100); Sodium 141 mmol/L (135-145)
[2020-04-28 05:07] LABS: CO2 Carbon Dioxide 45 mmol/L (22-32)
[2020-04-28] MEDS: Tiotropium Brom/Olodaterol MDI INH SCH (09:42)
[2020-04-28] MEDS: Albuterol HFA INHALER 8 gm MDI INH PRN ×2 (09:42→20:21)
[2020-04-28] MEDS: Mometasone 220 MCG MDI INH SCH ×2 (09:43→20:21)
[2020-04-28] MEDS: DULoxetine DR 30 mg CAP PO SCH (10:28)
[2020-04-28] MEDS: Enoxaparin 40 MG/0.4 ML SYR SUBCUT SCH (10:28)
[2020-04-28] MEDS: Polyethylene Glycol 3350 17 GM PACKET PO SCH (10:28)
[2020-04-28] MEDS: Saline FLUSH-CENTRAL 10 ML SYRINGE CENT\\PICC SCH (11:53)
[2020-04-28] MEDS: Benzocaine/Menthol LOZ PO PRN (21:28)
[2020-04-29] MEDS: Saline FLUSH-CENTRAL 10 ML SYRINGE CENT\\PICC SCH ×2 (01:28→10:09)
[2020-04-29] MEDS: Albuterol HFA INHALER 8 gm MDI INH PRN ×3 (07:33→19:45)
[2020-04-29] MEDS: Tiotropium Brom/Olodaterol MDI INH SCH (07:33)
[2020-04-29] MEDS: Mometasone 220 MCG MDI INH SCH ×2 (07:34→19:45)
[2020-04-29] MEDS: Polyethylene Glycol 3350 17 GM PACKET PO SCH (08:17)
[2020-04-29] MEDS: Enoxaparin 40 MG/0.4 ML SYR SUBCUT SCH (08:18)
[2020-04-29] MEDS: DULoxetine DR 30 mg CAP PO SCH (08:18)
[2020-04-30] MEDS: Saline FLUSH-CENTRAL 10 ML SYRINGE CENT\\PICC SCH ×3 (02:04→22:36)
[2020-04-30] MEDS: Tiotropium Brom/Olodaterol MDI INH SCH (07:19)
[2020-04-30] MEDS: Albuterol HFA INHALER 8 gm MDI INH PRN ×2 (07:19→19:34)
[2020-04-30] MEDS: Mometasone 220 MCG MDI INH SCH ×2 (07:20→19:32)
[2020-04-30] MEDS: Enoxaparin 40 MG/0.4 ML SYR SUBCUT SCH (08:19)
[2020-04-30] MEDS: Polyethylene Glycol 3350 17 GM PACKET PO SCH (08:19)
[2020-04-30] MEDS: DULoxetine DR 30 mg CAP PO SCH (08:20)
[2020-04-30 08:21] LABS: BUN/Creatinine Ratio 17.5 (8-20); Calcium 8.5 mg/dL (8.6-10.3); EGFR African American 187.3 (>60); EGFR Non-African American 154.8 (>60); Potassium 4.9 mmol/L (3.5-5.0)
[2020-04-30] MEDS ORDERED: Senna TAB 8.6 mg TAB PO PRN (10:49)
[2020-04-30] MEDS: Benzocaine/Menthol LOZ PO PRN (22:36)
[2020-05-01 05:45] LABS: ABS Eosinophils 0.1 10^3/ul (0-0.6); ABS Lymphocytes 0.5 10^3/ul (1.0-4.8); ABS Monocytes 0.8 10^3/ul (0-0.8); ABS Neutrophils 6.3 10^3/ul (1.5-7.7); Eosinophil % 0.9 %; Hematocrit 31 % (35-47); Hemoglobin 10.1 g/dL (12.0-16.0); Lymphocyte % 6.2 %; Mean Corpuscular HGB Conc 33 g/dL (31-36); Mean Corpuscular Hemoglobin 31 pg (27-31); Mean Corpuscular Volume 95 fL (80-97); Mean Platelet Volume 6.6 fL (7.4-10.4); Platelet Count 133 10^3/uL (150-450); Red Blood Count 3.28 10^6 /uL (3.70-4.87); Red Cell Distribution Width 16 % (10-15); White Blood Count 7.7 10^3/uL (3.5-10.8)
[2020-05-01 06:02] LABS: BUN/Creatinine Ratio 21.6 (8-20); Calcium 8.7 mg/dL (8.6-10.3); EGFR African American 204.9 (>60); EGFR Non-African American 169.3 (>60); Potassium 3.4 mmol/L (3.5-5.0)
[2020-05-01] MEDS: Tiotropium Brom/Olodaterol MDI INH SCH (07:53)
[2020-05-01] MEDS: Mometasone 220 MCG MDI INH SCH ×2 (07:53→20:43)
[2020-05-01] MEDS ORDERED: Potassium Chlor 20 meq TAB.ER PO ONE (08:00)
[2020-05-01] MEDS: DULoxetine DR 30 mg CAP PO SCH (10:02)
[2020-05-01] MEDS: Enoxaparin 40 MG/0.4 ML SYR SUBCUT SCH (10:05)
[2020-05-01] MEDS: Polyethylene Glycol 3350 17 GM PACKET PO SCH (10:05)
[2020-05-01] MEDS: Saline FLUSH-CENTRAL 10 ML SYRINGE CENT\\PICC SCH (12:00)
[2020-05-01] MEDS: Cholecalciferol (VIT D3) 1,000 unit TAB PO SCH (17:16)
[2020-05-01] MEDS: Benzocaine/Menthol LOZ PO PRN (20:32)
[2020-05-02] MEDS: Saline FLUSH-CENTRAL 10 ML SYRINGE CENT\\PICC SCH (02:27)
[2020-05-02 04:54] LABS: Calcium 8.5 mg/dL (8.6-10.3); EGFR African American 187.3 (>60); EGFR Non-African American 154.8 (>60); Potassium 3.3 mmol/L (3.5-5.0)
[2020-05-02] MEDS: Tiotropium Brom/Olodaterol MDI INH SCH (07:35)
[2020-05-02] MEDS: Mometasone 220 MCG MDI INH SCH (07:35)
[2020-05-02] MEDS ORDERED: Potassium Chlor 20 meq TAB.ER PO ONE (07:40)
[2020-05-02 08:09] VITALS: BP 129/64
[2020-05-02] MEDS: Cholecalciferol (VIT D3) 1,000 unit TAB PO SCH (09:11)
[2020-05-02] MEDS: DULoxetine DR 30 mg CAP PO SCH (09:11)
[2020-05-02] MEDS: Enoxaparin 40 MG/0.4 ML SYR SUBCUT SCH (09:13)
[2020-05-02] MEDS: Polyethylene Glycol 3350 17 GM PACKET PO SCH (09:14)
== END 2020-05-02 12:30 | DRG 480 ==
LOC: ED 14:37 → MED 21:56 → SSU 04-02 17:43 → ICU 04-04 19:07 → MED 04-14 12:00 → ICU 04-26 11:30 → MEDTELE 04-27 11:13
PROVIDERS: ADMIT Student in an Organized Health Care Education/Training Program; ATTEND Student in an Organized Health Care Education/Training Program

== ENCOUNTER 2020-09-29 10:52 | Inpatient (IN) ==
[2020-09-29 11:31] LABS: ABS Basophils 0.1 10^3/ul (0-0.2); ABS Eosinophils 0.1 10^3/ul (0-0.6); ABS Monocytes 1.5 10^3/ul (0-0.8); ABS Neutrophils 10.5 10^3/ul (1.5-7.7); Eosinophil % 0.9 %; Hematocrit 38 % (35-47); Hemoglobin 12.3 g/dL (12.0-16.0); Lymphocyte % 7.6 %; Mean Corpuscular HGB Conc 33 g/dL (31-36); Mean Corpuscular Hemoglobin 28 pg (27-31); Mean Corpuscular Volume 85 fL (80-97); Mean Platelet Volume 6.9 fL (7.4-10.4); Platelet Count 314 10^3/uL (150-450); Red Blood Count 4.39 10^6 /uL (3.70-4.87); Red Cell Distribution Width 16 % (10-15); White Blood Count 13.2 10^3/uL (3.5-10.8)
[2020-09-29 11:43] LABS: ALT 16 U/L (7-52); AST 16 U/L (13-39); Albumin 3.4 g/dL (3.2-5.2); Albumin/Globulin Ratio 1.4 (1-3); Alkaline Phosphatase 57 U/L (35-149); Blood Urea Nitrogen 12 mg/dL (6-24); Calcium 8.7 mg/dL (8.6-10.3); Chloride 100 mmol/L (101-111); EGFR African American 135.3 (>60); EGFR Non-African American 111.9 (>60); Globulin 2.4 g/dL (2-4); Glucose 116 mg/dL (70-100); Potassium 3.8 mmol/L (3.5-5.0); Sodium 142 mmol/L (135-145); Total Protein 5.8 g/dL (6.4-8.9)
[2020-09-29 11:45] LABS: Troponin I 0.01 ng/mL (<0.03)
[2020-09-29 12:01] LABS: CO2 Carbon Dioxide 42 mmol/L (22-32)
[2020-09-29] MEDS ORDERED: cefTRIAXone 1 gm/50 mL NS BAG 1 GM/50 ML BAG IV ONE (12:06)
[2020-09-29] MEDS ORDERED: Azithromycin 500 mg/250 ml NS 500 MG/250 ML BAG IVPB ONE (12:06)
[2020-09-29] MEDS ORDERED: Iodixanol (CONTRAST) 320 MG/ML 100 ML SDV IV ONE (13:43)
[2020-09-29] MEDS ORDERED: Albuterol/Ipratropium NEB.SOL (2.5/0.5 MG) 3 ML NEB.SOLN INH PRN (16:14)
[2020-09-29] MEDS ORDERED: Furosemide 40 mg/4 ml IV VIAL IV SLOW PU ONE (16:18)
[2020-09-29] MEDS: DOXYcycline 100 MG in NS 0.9% 250 ml 250 ML IVPB SCH (19:30)
[2020-09-29] MEDS: Budesonide NEB 0.5 MG/2 ML NEB.SOLN INH SCH (20:16)
[2020-09-29] MEDS: Albuterol 2.5mg/3 ml (0.083%) NEB.SOLN INH PRN (20:19)
[2020-09-29] MEDS: Heparin 5000 UNITS/ML 1 mL VIAL SUBCUT SCH (20:55)
[2020-09-29] MEDS: Aspirin EC 81 mg TAB.EC (enteric coated) PO SCH (20:55)
[2020-09-30 04:22] LABS: ABS Basophils 0.1 10^3/ul (0-0.2); ABS Eosinophils 0.1 10^3/ul (0-0.6); ABS Lymphocytes 1.1 10^3/ul (1.0-4.8); ABS Monocytes 1.1 10^3/ul (0-0.8); ABS Neutrophils 6.7 10^3/ul (1.5-7.7); Eosinophil % 1.5 %; Hematocrit 35 % (35-47); Hemoglobin 11.7 g/dL (12.0-16.0); Lymphocyte % 11.8 %; Mean Corpuscular HGB Conc 33 g/dL (31-36); Mean Corpuscular Hemoglobin 28 pg (27-31); Mean Corpuscular Volume 85 fL (80-97); Mean Platelet Volume 6.7 fL (7.4-10.4); Platelet Count 277 10^3/uL (150-450); Red Blood Count 4.12 10^6 /uL (3.70-4.87); Red Cell Distribution Width 15 % (10-15); White Blood Count 9.1 10^3/uL (3.5-10.8)
[2020-09-30 05:44] LABS: C Reactive Protein 13.94 mg/L (<8.01); Calcium 8.2 mg/dL (8.6-10.3); EGFR African American 167.8 (>60); EGFR Non-African American 138.7 (>60); Potassium 3.3 mmol/L (3.5-5.0)
[2020-09-30] MEDS: DOXYcycline 100 MG in NS 0.9% 250 ml 250 ML IVPB SCH ×2 (06:15→18:15)
[2020-09-30] MEDS: Heparin 5000 UNITS/ML 1 mL VIAL SUBCUT SCH ×3 (06:19→20:16)
[2020-09-30] MEDS: Budesonide NEB 0.5 MG/2 ML NEB.SOLN INH SCH ×2 (07:53→20:18)
[2020-09-30] MEDS: Tiotropium Brom/Olodaterol MDI INH SCH (08:08)
[2020-09-30] MEDS: Multivitamins/Minerals TAB PO SCH (08:22)
[2020-09-30] MEDS: Cholecalciferol (VIT D3) 1,000 unit TAB PO SCH (08:22)
[2020-09-30] MEDS: DULoxetine DR 30 mg CAP PO SCH (08:22)
[2020-09-30] MEDS: Potassium Chlor 20 meq TAB.ER PO SCH (08:23)
[2020-09-30] MEDS: Polyethylene Glycol 3350 17 GM PACKET PO SCH (08:28)
[2020-09-30 09:25] LABS: Magnesium 1.8 mg/dL (1.9-2.7)
[2020-09-30] MEDS ORDERED: Furosemide 40 mg/4 ml IV VIAL IV ONE (10:12)
[2020-09-30] MEDS: Albuterol HFA INHALER 8 gm MDI INH SCH ×2 (10:47→14:08)
[2020-09-30] MEDS: cefTRIAXone 1 gm/50 mL NS BAG 1 GM/50 ML BAG IVPB SCH (12:19)
[2020-09-30] MEDS ORDERED: Azithromycin 500 mg/250 ml NS 500 MG/250 ML BAG IVPB SCH (13:00)
[2020-09-30] MEDS ORDERED: Albuterol HFA INHALER 8 gm MDI INH PRN (15:07)
[2020-09-30] MEDS: Aspirin EC 81 mg TAB.EC (enteric coated) PO SCH (20:15)
[2020-10-01 05:45] LABS: Blood Urea Nitrogen 10 mg/dL (6-24); Calcium 8.5 mg/dL (8.6-10.3); Chloride 96 mmol/L (101-111); EGFR African American 159.4 (>60); EGFR Non-African American 131.7 (>60); Glucose 96 mg/dL (70-100); Magnesium 1.8 mg/dL (1.9-2.7); Potassium 3.3 mmol/L (3.5-5.0); Sodium 141 mmol/L (135-145)
[2020-10-01 05:48] LABS: ABS Eosinophils 0.1 10^3/ul (0-0.6); ABS Lymphocytes 1.3 10^3/ul (1.0-4.8); ABS Neutrophils 5.4 10^3/ul (1.5-7.7); Eosinophil % 1.9 %; Hematocrit 37 % (35-47); Lymphocyte % 16.5 %; Mean Corpuscular HGB Conc 33 g/dL (31-36); Mean Corpuscular Hemoglobin 28 pg (27-31); Mean Corpuscular Volume 86 fL (80-97); Nucleated Red Blood Cells % 0.1; Platelet Count 288 10^3/uL (150-450); Red Blood Count 4.31 10^6 /uL (3.70-4.87); Red Cell Distribution Width 15 % (10-15); White Blood Count 7.9 10^3/uL (3.5-10.8)
[2020-10-01 05:54] LABS: CO2 Carbon Dioxide 45 mmol/L (22-32)
[2020-10-01] MEDS: DOXYcycline 100 MG in NS 0.9% 250 ml 250 ML IVPB SCH ×2 (06:13→17:52)
[2020-10-01] MEDS: Heparin 5000 UNITS/ML 1 mL VIAL SUBCUT SCH ×3 (06:26→21:55)
[2020-10-01] MEDS: Budesonide NEB 0.5 MG/2 ML NEB.SOLN INH SCH ×2 (07:56→20:30)
[2020-10-01] MEDS: Albuterol 2.5mg/3 ml (0.083%) NEB.SOLN INH PRN (07:57)
[2020-10-01] MEDS: Tiotropium Brom/Olodaterol MDI INH SCH (08:06)
[2020-10-01] MEDS ORDERED: Magnesium Sulfate IV 3 GM in NS 0.9% 100 ml BAG 100 ML IVPB ONE (08:30)
[2020-10-01] MEDS: DULoxetine DR 30 mg CAP PO SCH (09:56)
[2020-10-01] MEDS: Multivitamins/Minerals TAB PO SCH (09:56)
[2020-10-01] MEDS: Potassium Chlor 20 meq TAB.ER PO SCH (09:56)
[2020-10-01] MEDS: Cholecalciferol (VIT D3) 1,000 unit TAB PO SCH (09:56)
[2020-10-01] MEDS: Polyethylene Glycol 3350 17 GM PACKET PO SCH (12:11)
[2020-10-01] MEDS: cefTRIAXone 1 gm/50 mL NS BAG 1 GM/50 ML BAG IVPB SCH (13:30)
[2020-10-01] MEDS: Albuterol HFA INHALER 8 gm MDI INH SCH ×2 (16:11→16:12)
[2020-10-01] MEDS ORDERED: Albuterol/Ipratropium NEB.SOL (2.5/0.5 MG) 3 ML NEB.SOLN INH PRN (19:23)
[2020-10-01] MEDS: Aspirin EC 81 mg TAB.EC (enteric coated) PO SCH (21:54)
[2020-10-02] MEDS: Heparin 5000 UNITS/ML 1 mL VIAL SUBCUT SCH ×2 (05:46→12:49)
[2020-10-02] MEDS: DOXYcycline 100 MG in NS 0.9% 250 ml 250 ML IVPB SCH (05:46)
[2020-10-02] MEDS: Budesonide NEB 0.5 MG/2 ML NEB.SOLN INH SCH (07:14)
[2020-10-02 07:32] LABS: ABS Eosinophils 0.2 10^3/ul (0-0.6); ABS Lymphocytes 0.9 10^3/ul (1.0-4.8); ABS Neutrophils 4.5 10^3/ul (1.5-7.7); Eosinophil % 2.6 %; Hematocrit 38 % (35-47); Hemoglobin 12.3 g/dL (12.0-16.0); Lymphocyte % 13.8 %; Mean Corpuscular HGB Conc 33 g/dL (31-36); Mean Corpuscular Hemoglobin 28 pg (27-31); Mean Corpuscular Volume 86 fL (80-97); Platelet Count 284 10^3/uL (150-450); Red Cell Distribution Width 16 % (10-15); White Blood Count 6.6 10^3/uL (3.5-10.8)
[2020-10-02 07:41] LABS: Calcium 8.8 mg/dL (8.6-10.3); Magnesium 2.2 mg/dL (1.9-2.7); Potassium 3.4 mmol/L (3.5-5.0)
[2020-10-02] MEDS: Tiotropium Brom/Olodaterol MDI INH SCH (07:53)
[2020-10-02 08:09] LABS: C Reactive Protein 14.4 mg/L (<8.01)
[2020-10-02] MEDS: Potassium Chlor 20 meq TAB.ER PO SCH (09:09)
[2020-10-02] MEDS: DULoxetine DR 30 mg CAP PO SCH (09:09)
[2020-10-02] MEDS: Cholecalciferol (VIT D3) 1,000 unit TAB PO SCH (09:09)
[2020-10-02] MEDS: Multivitamins/Minerals TAB PO SCH (09:09)
[2020-10-02] MEDS: Polyethylene Glycol 3350 17 GM PACKET PO SCH (09:09)
[2020-10-02 09:18] LABS: TSH Ultra Thyroid Stim Horm 4.18 mcIU/mL (0.34-5.60)
[2020-10-02] MEDS: cefTRIAXone 1 gm/50 mL NS BAG 1 GM/50 ML BAG IVPB SCH ×2 (12:05→12:18)
[2020-10-02 12:09] VITALS: BP 117/62
== END 2020-10-02 15:00 | disposition home or self-care (01) | DRG 193 ==
LOC: ED 10:52 → MED 10:52
PROVIDERS: ADMIT Internal Medicine; ATTEND Pediatrics